=== PATIENT | female | born 1930 | race Caucasian/White ===

== ENCOUNTER 2017-03-09 10:54 | Outpatient (CLI) | payer MEDICARE | END 2017-03-09 10:55 | disposition home or self-care (01) | LOC: BICMAMMO 10:54 | PROVIDERS: ATTEND Internal Medicine Medical Oncology | DX: Z12.31 Encounter for screening mammogram for malignant neoplasm of breast (principal); Z85.3 Personal history of malignant neoplasm of breast | CPT/HCPCS: 77063; 77067 ==

== ENCOUNTER 2017-12-25 07:12 | Outpatient (CLI) | payer MEDICARE ==
--- NOTE | 2017-12-25 09:59 | MRI ---
LEFT SHOULDER MRI WITHOUT IV CONTRAST: HISTORY: An 87-year-old female with a history of acute left shoulder pain with limited range of motion. FINDINGS: Multiplanar, multisequence MRI examination of the left shoulder is performed. AC joint arthrosis jerri nges are noted with some undersurface spurring of the distal clavicle. Complete full-thickness tear of the supraspinatus tendon with retraction back to the level of the humeral dome. Fluid from the jair int space extending into the subacromial and subdeltoid bursa. Partial thickness undersurface and de laminating infraspinatus tendon tear. Subscapularis tendinopathy. Biceps tendon appears intact. Mo derate muscle volume loss of the supraspinatus muscle. The remaining rotator cuff muscles appear wit hin normal limits. 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 Complete full-thickness retracted tear of the supraspinatus tendon with moder ate muscle volume loss of the supraspinatus muscle. Partial-thickness undersurface and delaminating infraspinatus tendon tear. Subscapularis tendinopathy. POS: [facility]
== END 2017-12-25 07:13 | disposition home or self-care (01) ==
LOC: BICMRI 07:12
PROVIDERS: ATTEND Family Medicine
DX: M25.512 Pain in left shoulder (principal); M19.012 Primary osteoarthritis, left shoulder; M75.102 Unspecified rotator cuff tear or rupture of left shoulder, not specified as traumatic; M77.9 Enthesopathy, unspecified; M75.92 Shoulder lesion, unspecified, left shoulder

== ENCOUNTER 2018-03-12 10:04 | Outpatient (CLI) | payer MEDICARE | END 2018-03-12 10:05 | disposition home or self-care (01) | LOC: BICMAMMO 10:04 | PROVIDERS: ATTEND Internal Medicine Medical Oncology | DX: Z12.31 Encounter for screening mammogram for malignant neoplasm of breast (principal); Z85.3 Personal history of malignant neoplasm of breast | CPT/HCPCS: 77063; 77067 ==

== ENCOUNTER 2019-09-11 10:28 | Outpatient (CLI) | payer MEDICARE ==
--- NOTE | 2019-09-11 10:59 | ULT ---
Exam: Bilateral renal ultrasound HISTORY: Urinary tract infection COMPARISON: 01/29/2016 FINDINGS: Right kidney: Normal cortical echotexture. No hydronephrosis. There is right renal cortical thinning. Right kidney measurements: 4.1 x 10.1 x 4.5 cm. There is left renal cortical thinning. Exophytic cyst emanates from the medial left renal cortex, measuring 3.0 x 2.2 x 2.6 cm. Left kidney: Normal cortical echotexture. No hydronephrosis Left kidney measurements 4.9 x 9.3 x 4.2 cm. cm. Urinary bladder: Not be assessed due to voiding right before the exam. IMPRESSION: 1. No hydronephrosis 2. Bilateral renal cortical thinning 3. Left renal cortical cysts.
== END 2019-09-11 10:29 | disposition home or self-care (01) ==
LOC: SCSULT 10:28
PROVIDERS: ATTEND Family Medicine
DX: N39.0 Urinary tract infection, site not specified (principal); N28.1 Cyst of kidney, acquired; N28.89 Other specified disorders of kidney and ureter
CPT/HCPCS: 76770

== ENCOUNTER 2019-12-09 13:55 | Outpatient (CLI) | payer MEDICARE ==
--- NOTE | 2019-12-09 14:24 | ULT ---
EXAM: Carotid ultrasound HISTORY: Near syncope COMPARISON: None TECHNIQUE: Multiplanar grayscale and color Doppler images were obtained in a carotid ultrasound. Spec tral analysis of the Doppler waveforms were performed. FINDINGS: A small amount of plaque is seen surrounding the right carotid bifurcation. The Doppler waveforms are normal in the visualized vessels. Peak systolic velocity in the right internal carotid artery 67 cm/s. Peak systolic velocity in the right common carotid artery 67 cm/s. The right ICA/CCA ratio is 1.0. Peak systolic velocity in the left internal carotid artery 53 cm/s. Peak systolic velocity in the left common carotid artery 71 cm/s. The left ICA/CCA ratio is 0.8. Both vertebral arteries demonstrate antegrade flow without focal stenosis IMPRESSION: No evidence of hemodynamically significant stenosis.
== END 2019-12-09 13:56 | disposition home or self-care (01) ==
LOC: BICULT 13:55
PROVIDERS: ATTEND Family Medicine
DX: R55 Syncope and collapse (principal)
CPT/HCPCS: 93880